=== PATIENT | female | born 2005 | race Two or more races ===

== ENCOUNTER 2024-03-04 19:51 | Emergency (ER) | payer OTHER ==
[~2024-03-04] VITALS: Ht 162.6 cm; Wt 59.0 kg
[2024-03-04 20:54] LABS: Urine Bacteria FEW /hpf (None Seen); Urine Blood Negative /uL (Negative); Urine Clarity Turbid (Clear); Urine Color Light-Orange (Yellow); Urine Hyaline Cast FEW /lpf (0 - 2); Urine Mucus FEW (None Seen); Urine Protein, UAD TRACE (Negative); Urine Specific Gravity 1.022 (1.001-1.035); Urine Urobilinogen 2 mg/dL (Negative); Urine WBC 14 /hpf (0 - 5)
[2024-03-04 20:58] VITALS: BP 103/76; PULSE 97; RESP 16; O2SAT 97
[2024-03-04] MEDS: KETOROLAC TROMETH 60MG/2ML VIAL IM ONE (21:03)
[2024-03-04] MEDS: HYDROcodone-ACET 5/325MG TAB PO ONE (21:09)
--- NOTE | 2024-03-04 21:24 | DVH ---
Procedure: XY KUB ABDOMEN SINGLE VIEW Study Date and Requested Time: 03/04/2024 09:04 PM Technique: 2 views of the abdomen and pelvis available for evaluation. History: Periumbilical abdominal pain Comparison: None Findings/ Impression: Nonspecific bowel gas pattern. No evidence of bowel obstruction or ileus. Small to moderate amount o f fecal material within the visualized colon. Surgical clips are noted over the right upper abdominal quadrant. No abnormal calcifications are noted. 2.5 cm densities over the bilateral upper abdominal quadrants which are most likely external to the p atient. The lung bases are clear. No evidence of acute bony abnormalities.
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
[2024-03-04] MEDS ORDERED: ACET500T58 PO (22:02)
[2024-03-04] MEDS ORDERED: NITR-87 PO (22:02)
== END 2024-03-04 23:12 | disposition home or self-care (01) ==
LOC: ER 19:51
DX: N39.0 Urinary tract infection, site not specified (principal); R51.9 Headache, unspecified; Y04.8XXA Assault by other bodily force, initial encounter; Y93.89 Activity, other specified; Y92.89 Other specified places as the place of occurrence of the external cause; Y99.8 Other external cause status
CPT/HCPCS: 74018; 81001; 96372; 99284; J1885